=== PATIENT | male | born 1995 | race Caucasian/White ===

== ENCOUNTER 2017-09-14 17:32 | Emergency (ER) | payer BC ==
[2017-09-14 17:44] VITALS: BP 129/77; PULSE 80; RESP 16; TEMP 97.7; O2SAT 95
--- NOTE | 2017-09-14 17:57 | EDPHY ---
General Time Seen by Provider: 09/14/17 17:49 Narrative: CHIEF COMPLAINT: Right shoulder pain HISTORY OF PRESENT ILLNESS: Patient complains of right shoulder pain status post snowboarding injury. He was snowboarding at [place] this afternoon when he caught his head, landing directly on the right shoulder. He was not wearing a helmet and denies any head strike or loss of conscious. Complains of severe pain in the right shoulder. He says it looked awkward him and his pain was intolerable so he "wrenched it up over my head," describing abduction movement. He says that it "popped" and started to feel better. He has severe pain if he tries to move the shoulder away from the body. He has no numbness or tingling. No weakness. No complaints elsewhere. He is currently visiting a friend returns back to [place] tomorrow. No other associated complaints or modifying factors. ESTABLISHED ORTHOPEDIST: None locally REVIEW OF SYSTEMS: Ten systems reviewed and are negative unless otherwise noted in the HPI PAST MEDICAL HISTORY: Orthopedic injuries PAST SURGICAL HISTORY: No recent surgeries SOCIAL HISTORY: Nonsmoker. Occasional alcohol use. Lives in [place] and is visiting a friend in [place] FAMILY HISTORY: Noncontributory EXAMINATION General Appearance: Alert, no distress Cardiovascular: Symmetric radial pulses 2+. Neurological: A&O, light sensation to the dorsum of the hand is symmetric. Two point sensation of the right hand is intact. No wrist drop on the right hand. Good interossei strength of the right hand. Skin: Warm and dry, no rash. No petechiae. No purpura. No skin tenting. No puncture or laceration Extremities: Normal appearance of the right shoulder without step-off or deformity. There is tenderness of the right AC and right humeral head. No tenderness of the right elbow, wrist or hand. Range of motion of the shoulder not tested the range of motion of the wrists and elbows symmetric. Good signs of perfusion of the right hand Psychiatric: Mood and affect normal DIFFERENTIAL DIAGNOSES: Including but not limited to sprain, strain, dislocation, subluxation, fracture MDM: 5:50 p.m. Acute right shoulder pain with possible dislocation versus subluxation prior to arrival to the hospital. I do not appreciate evidence of dislocation by direct visualization, range of motion below shoulder height, or my interpretation of the x-ray. He is neurovascular intact distal to this. I will place him in a sling and swath and await radiologist interpretation of the x-ray. He is declining pain medication or ibuprofen at this time. 6:02 p.m. My interpretation of the x-ray without the aid of radiologist reveals no obvious dislocation. There may be a mild subluxation. There also appears to be a mild sprain 6:20 p.m. Patient be discharged home in stable condition, neurovascular intact. He has been placed in a sling with weightbearing instructions. He will be provided no medications at his request. He is return to [place] tomorrow, thus we will send him home with a disc of his images. We discussed ED precautions. We discussed ice. We discussed ibuprofen should he change his mind. He is comfortable this plan and discharged home stable condition. SUPERVISION: This patient was independently evaluated without direct involvement of or examination by the attending physician. ED Precautions: Worsening pain. Erythema, edema, cyanosis, pallor, paresthesia or anesthesia. - Diagnostics Imaging Results: Imaging Impressions Shoulder X-Ray 09/14/17 17:33 Impression: Normal Right shoulder series. - History Smoking Status: Current some day smoker - Objective Vital Signs: Initial Vital Signs Temperature (C) 97.7 F 09/14/17 17:34 Heart Rate 80 09/14/17 17:34 Respiratory Rate 16 09/14/17 17:34 Blood Pressure 129/77 H 09/14/17 17:34 O2 Sat (%) 95 09/14/17 17:34 O2 Delivery Mode Room Air Allergies/Adverse Reactions: No Known Allergies Allergy (Unverified 09/14/17 17:34) Home Medications: Medication Instructions Recorded Adderall 10 MG (*) 09/14/17 Departure - Departure Disposition: Home, Routine, Self-Care Clinical Impression: Sprain of shoulder, right Qualifiers: Encounter type: initial encounter Shoulder sprain type: unspecified sprain Qualified Code(s): S43.401A - Unspecified sprain of right shoulder joint, initial encounter Condition: Good Instructions: Acromioclavicular Separation (ED), Shoulder Dislocation (ED), Shoulder Sprain (ED) Additional Instructions: 1. Minimal weight-bearing to the right upper extremity with no movement above the height of the base of the sternum until seen by Orthopedics 2. Recommend ibuprofen 400-600 mg every 6-8 hours as needed 3. recommend ice often 4. Recommend he remain in shoulder sling while awake 5. Follow up with Orthopedics for definitive care. Referrals: Darin Fotser MD [Medical Doctor] - As per Instructions
== END 2017-09-14 18:20 | disposition home or self-care (01) ==
DX: S43.401A Unspecified sprain of right shoulder joint, initial encounter (principal); F17.200 Nicotine dependence, unspecified, uncomplicated; V00.311A Fall from snowboard, initial encounter; Y99.8 Other external cause status; Y93.23 Activity, snow (alpine) (downhill) skiing, snowboarding, sledding, tobogganing and snow tubing